=== PATIENT | female | born 1970 | race Hispanic/Latino ===

== ENCOUNTER 2016-05-21 00:22 | Emergency (ER) | payer SELFPAY ==
--- NOTE | 2016-05-21 00:36 | Emergency Department Report ---
ED CPR HPI - General Stated Complaint: CARDIAC ARREST Time Seen by Provider: 05/21/16 00:22 Source: EMS, old records reviewed Mode of arrival: Stretcher Limitations: Altered Mental Status, Physical Limitation - History of Present Illness Initial Comments: 45-year-old female presents to the hospital status post cardiac arrest. She was found by her significant other unresponsive this evening. Last known well time approximately 9:30pm. EMS on scene at 11:52pm and found patient apneic and in asystole. Patient was intubated prior to arrival and IO placed in woodrow right lower extremity. Patient received epinephrine 2, sodium bicarbonate, and Narcan prior to arrival without improvement. Patient's rhythm did temporarily changed to V. tach and patient became asystolic after defibrillation. Accu-Chek in the 100s. Hydrocodone bottles found at the scene. Patient is known to have chronic pain and chronic narcotic use. Patient has also presented here in the past with overdose and heroin use - Related Data Previous Rx's Medication Instructions Recorded Last Taken Type Gabapentin [Neurontin] 800 mg PO Q8H #30 tablet 03/23/15 Unknown Rx Hydroxychloroquine [Plaquenil] 200 mg PO DAILY #30 tablet 03/23/15 Unknown Rx Levothyroxine [Synthroid] 50 mcg PO DAILY@0600 #30 tablet 03/23/15 Unknown Rx Lisinopril [Zestril TAB] 20 mg PO QDAY #30 tablet 03/23/15 Unknown Rx PARoxetine (NF) [Paxil (Nf)] 40 mg PO HS #30 tablet 03/23/15 Unknown Rx predniSONE [Deltasone] 5 mg PO QDAY #30 tab 04/02/15 Unknown Rx Allergies Allergy/AdvReac Type Severity Reaction Status Date / Time Iodinated Contrast Media - Allergy Intermediate DARIUS; HIVES Verified 08/30/14 11: 04 IV Dye Sulfa (Sulfonamide Allergy Intermediate Hives; DARIUS Verified 08/30/14 11:04 Antibiotics) NSAIDS (Non-Steroidal Allergy Swelling Verified 08/30/14 11:04 Anti-Inflamma ED Review of Systems ROS: Stated complaint: CARDIAC ARREST Other details as noted in HPI Comment: Unobtainable due to pts medical conditions ED Past Medical Hx - Past Medical History Hx Hypertension: Yes Hx Congestive Heart Failure: No Hx Diabetes: No Hx Arthritis: Yes Hx Kidney Stones: Yes Hx Asthma: Yes Hx COPD: Yes Hx HIV: No Additional medical history: lupus, hypothyroidism, 5 cervical herniated disc, 1 lumbar herniated discs. DEPRESSION. HIGH CHOLESTEROL - Surgical History Additional Surgical History: Hysterectomy, ectopic , ovary removed - Social History Smoking Status: Current Every Day Smoker Substance Use Type: Prescribed - Medications Home Medications: Home Medications Medication Instructions Recorded Confirmed Last Taken Type Gabapentin [Neurontin] 800 mg PO Q8H #30 tablet 03/23/15 07/20/15 Unknown Rx Hydroxychloroquine [Plaquenil] 200 mg PO DAILY #30 tablet 03/23/15 07/20/15 Unknown Rx Levothyroxine [Synthroid] 50 mcg PO DAILY@0600 #30 tablet 03/23/15 07/20/15 Unknown Rx Lisinopril [Zestril TAB] 20 mg PO QDAY #30 tablet 03/23/15 07/20/15 Unknown Rx PARoxetine (NF) [Paxil (Nf)] 40 mg PO HS #30 tablet 03/23/15 07/20/15 Unknown Rx predniSONE [Deltasone] 5 mg PO QDAY #30 tab 04/02/15 07/20/15 Unknown Rx ED Physical Exam - General Limitations: Altered Mental Status, Physical Limitation - Other Other exam information: General: Unresponsive Head exam: Atraumatic, normocephalic Eyes exam: Pupils fixed and dilated ENT: orally intubated Neck exam: Normal inspection Respiratory exam: no tenderness respirations. Equal breath sounds with bagging. Orally intubated 7.0 ET tube. No breath sounds over epigastric Cardiovascular: Pulseless, no audible heartbeat Abdomen: Soft, nondistended Extremity: No spontaneous movement Back: Normal Inspection Neurologic: GCS equals 3, no spontaneous movement Psychiatric: Unresponsive Skin: Warm, dry, intact ED Course - Reevaluation(s) Reevaluation #1: 05/21/16 00:39 [id number] ventilations continued upon arrival in addition to chest compressions. Patient received additional epinephrine 2 and patient remained in asystole with fixed and dilated pupils and no spontaneous respirations. Time of 12:29 am ED Medical Decision Making - Medical Decision Making Despite resuscitation at this patient remained asystole for greater than 30 minutes with fixed dilated pupils. Time of 12:29 AM - Differential Diagnosis overdose, arrhythmia, ND, PE, Critical Care Time: No Critical care attestation.: If time is entered above; I have spent that time in minutes in the direct care of this critically ill patient, excluding procedure time. ED Disposition Clinical Impression: Cardiopulmonary arrest, History of narcotic addiction Disposition: Is pt being admited?: No Condition: Critical Time of Disposition: 00:42
[2016-05-21] MEDS ORDERED: ADRENALIN ONE (12:02)
== END 2016-05-21 03:45 ==
LOC: ED 00:22
DX: I46.9 Cardiac arrest, cause unspecified (principal); F11.20 Opioid dependence, uncomplicated; I10 Essential (primary) hypertension; M19.90 Unspecified osteoarthritis, unspecified site; J44.9 Chronic obstructive pulmonary disease, unspecified; J45.909 Unspecified asthma, uncomplicated; E03.9 Hypothyroidism, unspecified; F32.9 Major depressive disorder, single episode, unspecified; E78.00 Pure hypercholesterolemia, unspecified; F17.200 Nicotine dependence, unspecified, uncomplicated; Z90.710 Acquired absence of both cervix and uterus; Z88.2 Allergy status to sulfonamides; Z88.6 Allergy status to analgesic agent; Z91.041 Radiographic dye allergy status
CPT/HCPCS: 99285; J0171